=== PATIENT | female | born 1985 | race Caucasian/White ===

== ENCOUNTER 2019-09-20 12:10 | Emergency (ER) | payer OTHER ==
[~2019-09-20] VITALS: Ht 175.3 cm; Wt 73.8 kg
[2019-09-20 12:13] VITALS: BP 125/75
--- NOTE | 2019-09-20 12:25 | NUR ---
PT AMBULATORY TO ROOM 20 W/ C/O L THUMB NEEDLESTICK INJURY HAPPENED TODAY AT 1100. PT IS KNOWN HIV + AND HBV +. PT RESTING ON ALPHONSE. TATA. FRIEND AT BEDSIDE. NO OTHER COMPLAINTS.
[2019-09-20 12:57] LABS: BASOPHILS # (AUTO) 0.07 x10^3/uL (0-0.1); BASOPHILS % (AUTO) 1 % (0-1); EOSINOPHILS # (AUTO) 0.02 x10^3/uL (0-0.4); EOSINOPHILS % (AUTO) 0 % (1-7); LYMPHOCYTES # (AUTO) 1.38 x10^3/uL (1-3.4); LYMPHOCYTES % (AUTO) 19 % (22-44); MD NO; MEAN CORPUSCULAR HEMOGLOBIN 29.9 pg (27.0-34.8); MEAN CORPUSCULAR HGB CONC 33.5 g/dL (32.4-35.8); MEAN CORPUSCULAR VOLUME 89.3 fL (80-100); MEAN PLATELET VOLUME 7.6 fL (7.4-10.4); MONOCYTES % (AUTO) 4 % (2-9); NEUTROPHILS # (AUTO) 5.43 x10^3/uL (1.8-6.8); NEUTROPHILS % (AUTO) 76 % (42-75); PLATELET COUNT 330 x10^3/uL (130-400); RED BLOOD COUNT 4.88 x10^6/uL (3.82-5.3); RED CELL DISTRIBUTION WIDTH 12.5 % (9.6-15.2)
[2019-09-20 13:09] LABS: ALANINE AMINOTRANSFERASE 37 U/L (12-78); ALBUMIN 3.9 g/dL (3.4-5.0); ANION GAP 6 mmol/L (5-15); CALCIUM 8.5 mg/dL (8.5-10.1); CHLORIDE 107 mmol/L (98-107); CREATININE 0.95 mg/dL (0.55-1.02)
[2019-09-20 13:11] LABS: ALKALINE PHOSPHATASE 60 U/L (45-117); BILIRUBIN,TOTAL 0.7 mg/dL (0.2-1.0); TOTAL PROTEIN 7.3 g/dL (6.4-8.2)
[2019-09-20] MEDS ORDERED: EMTRICITABINE/TENOFOVIR 200 MG/300 MG TABLET PO ONE (13:37)
--- NOTE | 2019-09-20 13:55 | NUR ---
TASK RN: AWAITING MED FROM PHARMACY. PT AMBULATED TO BATHROOM
== END 2019-09-20 14:13 | disposition home or self-care (01) ==
LOC: ED 12:39
DX: Z20.6 Contact with and (suspected) exposure to human immunodeficiency virus [HIV] (principal)
CPT/HCPCS: 36415; 80053; 85025; 86706; 86803; 87806; 99283; G0475